=== PATIENT | male | born 1970 | race African-American/Black ===

== ENCOUNTER 2018-07-19 01:17 | Emergency (ER) | payer OTHER, SELFPAY ==
[2018-07-19 01:18] VITALS: BP 176/109; PULSE 68; RESP 20; TEMP 36.8; O2SAT 98; BMI 36.6
[2018-07-19] MEDS: predniSONE 20 MG Tablet 40 MG PO (01:39)
[2018-07-19] MEDS: Ipratropium/Albuterol Sulfate 3 ML AMPUL.NEB INHALATION ×2 (01:52→03:37)
[2018-07-19] MEDS: Albuterol 2.5 MG/3 ML VIAL.NEB. INHALATION (01:52)
[2018-07-19 01:56] VITALS: PULSE 79; RESP 18; O2SAT 95
--- NOTE | 2018-07-19 03:00 | RAD_ITS ---
STUDY: X-RAY CHEST REASON FOR EXAM: Male, 47 years old. SOB TECHNIQUE: Single frontal view of the chest. COMPARISON: None. FINDINGS: The lungs are clear and expanded. There is no demonstrated pleural abnormality. Normal size heart. Normal mediastinum and nader. Normal visualized pulmonary arteries. Normal visualized aortic arch and descending thoracic aorta. Normal visualized thoracic spine. Normal visualized ribs, clavicles, and shoulders. There is no demonstrated abnormality of the visualized soft tissue structures of the upper abdomen. RAD/Chest 1 View (Portable) IMPRESSION: Normal x-ray examination of the chest. Electronically Signed: Frederick Guerin MD at 3:29 EDT Tel , Service support ,
--- NOTE | 2018-07-19 03:00 | EKG12_ITS ---
Test Reason : SOB Blood Pressure : / mmHG Vent. Rate : 074 BPM Atrial Rate : 074 BPM P-R Int : 176 ms QRS Dur : 098 ms QT Int : 402 ms P-R-T Axes : 092 000 048 degrees QTc Int : 446 ms Normal sinus rhythm with sinus arrhythmia Normal ECG Confirmed by BRIANNA ROMAN, SHALINI ([id number]), book or script editor GABRIELLA COOK ([id number]) on 07/23/2018 12:36:26 PM Referred By: LORE Confirmed By:SHALINI REED MD
[2018-07-19] MEDS: 0.9% Normal Saline 1,000 ML 150 ML IV (03:14)
[2018-07-19 03:16] LABS: Absolute Lymphocyte Count 0.88 X10^3/ul (0.83-4.51); Absolute Neutrophil Count 5.3 X10^3/uL (2.0-7.7); Basophil# 0.03 X10^3/uL; Basophil% 0.4 % (0-1); Eosinophil# 0.37 X10^3/uL; Eosinophils% 5.3 % (0-5); Hematocrit 43.3 % (40-54); Hemoglobin 14.5 g/dl (13.0-16.5); Lymphocyte # 0.88 X10^3/ul (4.0); Lymphocyte % 12.7 % (19-41); Mean Corp Hgb Conc 33.5 g/gl (32-36); Mean Corpuscular Hgb 31.5 pg (27.0-32.0); Mean Corpuscular Volume 93.9 fL (80-94); Mean Platelet Vol. 9.6 fl (6.2-12.0); Monocyte# 0.34 X10^3/uL; Monocyte% 4.9 % (0-10); Neutrophil # 5.32 X10^3/uL (2.7-7.7); Neutrophil % 76.6 % (47-70); POSITIVE COUNT NO; POSITIVE DIFFERENTIAL NO; POSITIVE MORPHOLOGY NO; Platelet Count 169 K/mm3 (150-450); RBC Distribution Width CV 12.3 % (11.6-14.6); RBC Distribution Width SD 41.8 fl (35.1-43.9); Red Blood Count 4.61 M/mm3 (4.6-6.2)
[2018-07-19 03:25] LABS: D-Dimer Quantitative (DVT/PE) < 0.27 FEU/ug/m (0.27-0.49)
[2018-07-19 03:31] LABS: Anion Gap 8 (5-15); BUN 15 mg/dL (7-18); BUN/Creat Ratio 15.2 RATIO (10-20); Calcium,Total 9.3 mg/dL (8.5-10.1); Chloride 106 mmol/L (98-107); Creatinine, Serum 0.99 mg/dL (0.70-1.30); EST Glomerular Filtration Rate 87 mL/min (>60); Est Glom Filt Rate - Afr Amer 105 mL/min (>60); Estimated Creatinine Clearance 94.23 ml/min; Glucose 150 mg/dL (74-106); Potassium 3.6 mmol/L (3.5-5.1); Sodium Level 144 mmol/L (136-145)
[2018-07-19 03:44] VITALS: PULSE 79; RESP 18; O2SAT 95
[2018-07-19 03:54] VITALS: BP 165/84; PULSE 79; RESP 20; O2SAT 98
--- NOTE | 2018-07-19 03:58 | ED.DCSUM_ITS ---
- ER Visit Summary Date of Service: 07/19/18 Chief Complaint: [Jayashree of breath] History of Present Illness: The patient is a 47 M [presents the emergency department complaint shortness of breath over last 2 days. Patient thinks that his asthma is flaring up. Patient's been using his albuterol inhaler and not get much relief. Patient denies any fever or cough. He denies any chest pain. He denies recent travel or surgery. Patient does have a history of some anxiety also.] Physical Examination: [HEENT-PERRLA, EOMI. Cranial nerves II through XII grossly intact. TMs clear. Mucous membranes moist. No adenopathy. Cardiovascular-regular rate and rhythm without murmur or ectopy Lungs-good aeration bilaterally. Patient does have some faint expiratory wheezes noted bilaterally. There is no accessory muscle use or retractions. No conversational dyspnea. Abdomen-normoactive bowel sounds, soft, nontender, no rebound or rigidity, no peritoneal signs. Extremities-intact ?4, normal range of motion, normal pulses, atraumatic] Test Results: [EKG obtained on arrival showed a sinus rhythm with a ventricular rate of 74 bpm with no acute ST segment changes. CBC with differential was normal. Chemistries were normal. Troponin was less than 0.015. Chest x-ray was normal. D-dimer was less than 0.27.] Emergency Department Course and Treatment: [Patient was given DuoNeb aerosol as well as prednisone 40 mg p.o. Patient felt improved after treatment.] Treatment Plan: [Patient will be started on prednisone] Disposition: [Discharged home in stable condition] Impression: [Asthma exacerbation] This note was generated with [employer] dictation software. It may contain incorrect words, spelling, and punctuation that were not noted in review of the chart prior to signing ED Disposition - Plan for ED Patient: Chief Complaint: Shortness of Breath Referrals: Samantha Abreu MD [Primary Care Provider] -
--- NOTE | 2018-07-19 03:58 | ED.DEP ---
ED Disposition - Plan for ED Patient: Chief Complaint: Shortness of Breath Instructions: ED Reactive Airway Disease Prescriptions: Prednisone [Deltasone] 20 mg PO BID #10 tab Referrals: Samantha Abreu MD [Primary Care Provider] - 5-7 Days
[2018-07-19 04:06] VITALS: BP 165/64; PULSE 79; RESP 20; O2SAT 98
== END 2018-07-19 04:06 | disposition home or self-care (01) ==
LOC: ED 01:57
PROVIDERS: Emergency Provider Emergency Medicine; Family Provider Internal Medicine; PCP Internal Medicine
DX: J45.901 Unspecified asthma with (acute) exacerbation (principal); Z79.899 Other long term (current) drug therapy
CPT/HCPCS: 71045; 80048; 84484; 85025; 85379; 93005; 94640; 96360; 99285; J7030; A4216

== ENCOUNTER → 2019-03-29 | Outpatient (CLI) | payer OTHER, SELFPAY ==
[2019-01-24 13:35] VITALS: BMI 33.3
--- NOTE | 2019-03-29 17:47 | CT_ITS ---
STUDY: CT CHEST WITH CONTRAST REASON FOR EXAM: Male, 48 years old. Abnormal PFTs, asthma RADIATION DOSAGE (If Supplied By Facility): CTDIvol = ( 12.65 ) mGy, DLP = ( 622.04 ) mGycm TECHNIQUE: Transaxial imaging was performed following intravenous administration of 100 IV Isovue 300. Individualized dose optimization techniques were used for this CT. COMPARISON: None. FINDINGS: The lungs are expanded. Nonspecific punctate peripheral right upper lobe lateral nodule, image 31 series 4. Cardiomegaly.. Normal mediastinum. Normal hilar regions. Normal enhanced pulmonary arteries. Normal aorta arch and descending thoracic aorta. Normal osseous structures. Mildly fatty liver. CT/Chest WITH Contrast IMPRESSION: Nonspecific punctate right upper lobe peripheral nodular density. Mildly fatty liver. Cardiomegaly. Electronically Signed: James Johnson DO at 20:30 EDT Tel [phone], Service support ,
== END | disposition home or self-care (01) ==
PROVIDERS: Family Provider Internal Medicine; PCP Internal Medicine; Referring Provider Nurse Practitioner Acute Care; Visit Provider Nurse Practitioner Acute Care
DX: R94.2 Abnormal results of pulmonary function studies (principal); J45.40 Moderate persistent asthma, uncomplicated
CPT/HCPCS: 71260; Q9967

== ENCOUNTER 2020-03-18 02:33 | Emergency (ER) | payer BC, SELFPAY ==
[2020-01-23 13:28] VITALS: BMI 33.0
[2020-03-18 02:33] VITALS: BP 168/106; PULSE 86; TEMP 36.3; O2SAT 98; BMI 33.1
[2020-03-18] MEDS: Ketorolac 30 MG/ML Syringe IM (02:48)
[2020-03-18] MEDS: Orphenadrine 60 MG/2 ML Ampul IM (02:49)
--- NOTE | 2020-03-18 02:50 | ED.DEP ---
ED Disposition - Plan for ED Patient: Instructions: Muscle Spasm Prescriptions: cycloBENZAPRine HCl [Flexeril] 10 mg PO TID PRN #20 tablet PRN Reason: Muscle Spasm Referrals: Samantha Abreu MD [Primary Care Provider] -
--- NOTE | 2020-03-18 02:53 | ED.VISSUMM ---
- ER Visit Summary Date of Service: 03/18/20 Chief Complaint: Left thigh pain History of Present Illness: The patient is a 49 M presenting with left thigh pain. He states this started approximately one month ago. He states it has been worsening over the last couple of days. He denies injury. He states he started a new asthma medication, Arnuity Ellipta, approximately 1 month ago. He was unsure if this was causing his leg pain so he discontinued the medication 1 week ago. Pain is worsened with movement. He denies fever. Denies chest pain or shortness of breath. Denies PE/DVT risk factors. He has tried ibuprofen at home. Denies other complaints. Physical Examination: Vitals are stable. Patient is afebrile. Alert no acute distress. HEENT exam is unremarkable. Neck is supple. Lungs are clear and equal bilaterally. Heart is regular rate and rhythm. Extremities mild left anterior thigh tenderness. No erythema or warmth. Active full range of motion. Normal distal pulses. Skin is warm and dry. No focal neurologic deficit. Remainder of exam is unremarkable. Emergency Department Course and Treatment: Patient was given Toradol, Norflex IM. Venous Doppler is not available at this time of day and he was given order to have this test performed in the morning. He is given prescription for Flexeril and advised to continue ibuprofen. Swati jacksontica does have musculoskeletal pain listed as adverse effect 3-12% and muscle spasm less than 3%. He has already discontinued this medication. 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 Advised to follow up with primary care physician. Advised return to ED for worsening complaints. Disposition: Discharge home Impression: Left leg pain This note was generated with [employer] dictation software. It may contain incorrect words, spelling, and punctuation that were not noted in review of the chart prior to signing ED Disposition - Plan for ED Patient: Instructions: Muscle Spasm Prescriptions: cycloBENZAPRine HCl [Flexeril] 10 mg PO TID PRN #20 tab PRN Reason: Muscle Spasm Prescription Printed Referrals: Samantha Abreu MD [Primary Care Provider] -
== END 2020-03-18 03:20 | disposition home or self-care (01) ==
LOC: ED 02:59
PROVIDERS: Emergency Provider Emergency Medicine; PCP Internal Medicine
DX: M79.652 Pain in left thigh (principal); J45.909 Unspecified asthma, uncomplicated; I10 Essential (primary) hypertension; Z79.51 Long term (current) use of inhaled steroids; Z79.899 Other long term (current) drug therapy
CPT/HCPCS: 96372; 99282

== ENCOUNTER → 2020-03-18 | Outpatient (CLI) | payer BC, SELFPAY ==
[2020-03-18 02:33] VITALS: BMI 33.1
--- NOTE | 2020-03-18 13:14 | VDLE_ITS ---
Reason For Study: Leg pain RIGHT LEFT CFV is compressible, spontaneous, phasic, GSV is normal. competent and demonstrates normal CFV is compressible, spontaneous, phasic, augmentation. competent, and demonstrates normal Procedure augmentation. Exam performed in department. FV is compressible, spontaneous, phasic, A preliminary report was called and/or faxed competent and demonstrates normal to PCP, Brady. Pt seen in ED 03/18/2020. augmentation. POP V is compressible, spontaneous, phasic, competent and demonstrates normal augmentation. T/P Trunk is compressible. PTV is compressible. LT PerV is compressible. Interpretation Summary Deep veins of the left lower extremity are patent and compressible segmentally. There is no evidence of left lower extremity deep vein thrombosis. Valvular competence appears intact within the proximal deep venous system on the left . The left great saphenous vein appears patent and compressible segmentally. Ordering Physician: Anjelica Johnston Referring Physician: Samantha Abreu M.D. Performed By: Juju Dickinson RVT
== END | disposition home or self-care (01) ==
LOC: CVS 13:13
PROVIDERS: PCP Internal Medicine; Referring Provider Emergency Medicine; Visit Provider Emergency Medicine
DX: M79.605 Pain in left leg (principal)
CPT/HCPCS: 93971

== ENCOUNTER 2021-08-11 12:26 | Emergency (ER) | payer BC, SELFPAY ==
[2021-08-11 12:27] VITALS: BP 146/103; PULSE 92; RESP 18; TEMP 36.8; O2SAT 100; BMI 33.4
--- NOTE | 2021-08-11 12:36 | EDS_ITS ---
HPI History of Present Illness Chief Complaint: Constipation Informant: patient Narrative Narrative: 50-year-old male presents to the emergency department with constipation. Patient states that he sat on the toilet for 8 hours today and pushed. He states he feels that there is something there that is not coming out. He is passing gas. No bleeding. He did not have a bowel movement yesterday but cannot tell me when his last bowel movement was. [facility] Medical History (Updated 08/11/21 @ 13:[address] Austin Titus DO) Abdominal pain Acute gastritis without mention of hemorrhage Allergic rhinitis Asthma Hypertension Obesity Rectal bleeding Urinary calculus Home Medications ibuprofen 800 mg tablet 800 mg PO Q8H PRN tab 01/17/19 [History Last Taken Unknown] albuterol sulfate 90 mcg/actuation aerosol inhaler 2 puff INHALATION Q4H PRN g 01/24/19 [History Last Taken Unknown] lisinopril 2.5 mg tablet 2.5 mg PO DAILY 01/24/19 [History Last Taken Unknown] fluticasone furoate 200 mcg/actuation blister powder for inhalation 1 inh INHALATION QDAY #30 ea 07/10/19 [Rx Last Taken Unknown] Allergy/AdvReac Type Severity Reaction Status Date / Time Penicillins AdvReac Rash Verified 08/11/21 12:28 Family History Mother Diabetes Breast cancer Sister Diabetes Breast cancer Father Cancer gallbladder Surgical History History of colonoscopy Social History Smoking Status: Never smoker alcohol intake: never substance use type: does not use ROS ROS ED Constitutional Constitutional ED: Denies chills, fever(s) or weight loss Eyes Eyes: Denies change in vision or diplopia ENT ENT ED: Denies ear pain, rhinorrhea or sore throat Cardiovascular Cardiovascular: Denies chest pain, orthopnea, palpitations or racing heartbeat Respiratory/Chest Respiratory/Chest: Denies cough, dyspnea or orthopnea Gastrointestinal Gastrointestinal: Reports constipation; Denies abdominal pain, diarrhea, nausea or vomiting Genitourinary Genitourinary ED: Denies dysuria, hematuria or urinary frequency Musculoskeletal Musculoskeletal: Denies arthralgias or myalgias Integumentary Denies abscess or rash Neurologic Neurologic: Denies headache(s) or weakness Psychiatric Psychiatric: Denies anxiety, depression, suicidal ideation or suicidal thoughts Endocrine Endocrinology: Denies polydipsia, polyphagia or polyuria Allergic/Immunologic Allergic/Immunologic ED: Denies mouth swelling, tongue swelling or urticaria EXAM Physical Exam Const Vital Signs: 08/11/21 12:27 Temperature 98.3 F Temperature Source Temporal Pulse Rate 92 Respiratory Rate 18 Blood Pressure 146/103 H Blood Pressure Mean 117 Pulse Ox 100 Oxygen Delivery Method Room Air Positive well nourished and well developed General Appearance ED: well developed HEENT Reports normocephalic, head/scalp atraumatic, TM's clear and moist mucous membranes Negative for trauma Tympanic Membrane ED: Yes TM's clear Eyes PERRL and EOMs intact bilaterally Neck no lymphadenopathy, supple and no JVD Resp normal respiratory effort and clear to auscultation bilaterally Cardio regular rate, regular rhythm and no murmurs GI normal to inspection, nondistended, normoactive bowel sounds and non-tender Palpation: soft Narrative: Rectal examination shows a few inflamed hemorrhoids. There is no rectal prolapse. The stool is very soft Back/Spine no CVA tenderness and normal ROM Extremity normal to inspection General Extremety ED: Negative for edema General Extremity: Negative for edema Neuro oriented x3 and CN's II-XII intact bilaterally Sensorium / Orientation: alert Motor Exam: strength 5/5 throughout Psych mental status grossly normal Mood & Affect: Negative for depressed or tearful Skin no rashes or lesions noted and no wounds MDM MDM MDM Narrative Medical decision making narrative: My interpretation of the x-ray is fecal impaction of the rectum. Stool was soft and he received an enema and was able to evacuate what he needed to. Patient encouraged to start a daily stool softener so this does not recur Radiography Diagnostic Testing: Clinical Impression(s) from Imaging Studies KUB X-Ray 08/11/21 12:44 IMPRESSION: Mild colonic fecal retention. Nonobstructive bowel gas pattern. Electronically Signed: Mirza Rich MD ([place]) at 13:01 EST , Service support , Discharge Plan Triage Chief Complaint: Constipation ED Provider: Austin Titus Dx/Rx/DC Orders Clinical Impression: Fecal impaction in rectum Instructions: ED Fecal Impaction, Treated Prescriptions: No Action albuterol sulfate [Ventolin HFA] 90 mcg/actuation HFA aerosol inhaler 2 puff INHALATION Q4H PRN (Reason: Sob &/Or Wheezing) RF: 0 lisinopril 2.5 mg tablet 2.5 mg PO DAILY RF: 0 ibuprofen 800 mg tablet 800 mg PO Q8H PRN (Reason: pain) RF: 0 Arnuity Ellipta 200 mcg/actuation blister with device 1 inh INHALATION QDAY Qty: 30 RF: 6 Primary Care Provider: Samantha Abreu Referrals: Samantha Abreu MD [Primary Care Provider] - [facility] appointment Activity Restrictions/Additional Instructions: I would suggest you start a daily stool softener such as Colace 100 mg once a day Disposition Disposition: Home, Self Care
--- NOTE | 2021-08-11 12:44 | RAD_ITS ---
STUDY: X-RAY - ABDOMEN/PELVIS REASON FOR EXAM: Male, 50 years old. CONSTIPATION TODAY, FEELS THOUGH NEEDS TO HAVE BOWEL MOVEMENT, AND HAS PRESSURE, BUT UNABLE TO GO TECHNIQUE: AP supine and upright views of the abdomen and pelvis. COMPARISON: None. FINDINGS: Excluded lung bases. Mild fecal residue of the right colon and rectal vault. No dilated loops of small bowel. There is no demonstrated free abdominal air. The visualized liver, spleen and kidneys are grossly normal in size and morphology. Normal soft tissue structures. Normal visualized osseous structures. RAD/Abdomen Single View IMPRESSION: Mild colonic fecal retention. Nonobstructive bowel gas pattern. Electronically Signed: Mirza Rich MD ([place]) at 13:01 EST , Service support ,
== END 2021-08-11 14:21 | disposition home or self-care (01) ==
PROVIDERS: Emergency Provider Emergency Medicine; PCP Internal Medicine
DX: K56.41 Fecal impaction (principal); J45.909 Unspecified asthma, uncomplicated; I10 Essential (primary) hypertension; Z79.51 Long term (current) use of inhaled steroids; Z79.899 Other long term (current) drug therapy
CPT/HCPCS: 74018; 99284

== ENCOUNTER → 2023-02-20 | Outpatient (CLI) | payer BC, SELFPAY ==
--- NOTE | 2023-02-20 15:35 | ST.MBS ---
Modified Barium Swallow - Patient Information Study Date: 02/20/23 Study Time: 13:00 Direct Billable Minutes: 112 Total Minutes procedure & reportin Diagnosis: Pharyngoesophageal dysphagia (R13.14) Referring Physician: Samantha Abreu Reason for Referral: Objectively assess swallow function, assess risk for aspiration, and determine recommendations for least restrictive diet textures and compensatory strategies to improve safety of swallow. Medical History: The patient is a 52-year-old male with PMH including abdominal pain, asthma, HTN, and gastritis (SEE EMR for full PMH). He was referred for MBSS due to pharyngoesophageal dysphagia. Per patient, he began having swallowing difficulty 1-3 months ago characterized by sensation of food feeling hung up in his throat, and then passing. He reported no need for liquid wash to clear the sensation of retention. He reports this happens with food at every meal and occasionally drinks. He denies history of choking or coughing with oral intake. Of note, he eats little meat due to this issue. He consumes soft solid foods. He reports losing ~11 lbs since October. Current Diet Ordered: Soft solids / Thin liquids Dentition: WNL Respiratory Status: Oxygenating on Room Air - Penetration-Aspiration Scale Penetration-Aspiration Scale: OBJECTIVE ASSESSMENT OF SWALLOW FUNCTION (QUANTITATIVE ? PER TRIAL): PENETRATION / ASPIRATION SCALE (GUAMAN): 1 = does not enter airway 2 = enters airway/above vocal folds/ejected 3 = enters airway/above vocal folds/not ejected 4 = enters airway/contacts vocal folds/ejected 5 = enters airway/contacts vocal folds/not ejected 6 = enters airway/below vocal folds/ejected 7 = enters airway/below vocal folds/not ejected despite effort 8 = enters airway/below vocal folds/no effort VIDEOFLOROSCOPIC SCALE SCORE (GUAMAN): Grade I = aspiration of material that has penetrated into the laryngeal vestibule, intact cough reflex Grade II = aspiration < 10 % of the bolus, intact cough reflex Grade III = aspiration of < 10 % of the bolus, reduced cough reflex or aspiration of > 10 % of the bolus, intact cough reflex Grade IV = aspiration of > 10 % of the bolus, reduced cough reflex - Penetration-Aspiration Scale Score Thin Liquid via teaspoon Result: 1= does not enter airway Thin Liquid via teaspoon Trial 2 Result: 1= does not enter airway Thin Liquid via small single sip from cup Result: 1= does not enter airway Thin Liquid via sequential sips from cup Result: 2= enter airway/above vocal folds/ejected Raoul Thick Liquid via small single sip from cup Result: 1= does not enter airway - 4 swallows to clear from oral cavity Pudding via teaspoon esophageal screen Result: 1= does not enter airway - after 5 swallows ~1/2 of the bolus remained in the oral cavity 1/2 Cookie Result: 1= does not enter airway - after 4 swallows ~1/2 of the bolus remained in the oral cavity Pudding via teaspoon Result: 1= does not enter airway Comment: DYE MACHINE TENDER showed the patient he only has trace pharyngeal residues and encouraged the patient to swallow pudding bite whole. Patient continued with use of piecemeal deglutition and required 4 swallows to clear most of pudding via tsp from oral cavity. - Oral Phase Labial Seal: No Labial Escape Tongue Control During Bolus Hold: Cohesive bolus between tongue to palatal seal Bolus Preparation/Mastication: Slow prolonged chewing/mashing with complete recollection Bolus Transport/Lingual Motion: Brisk tongue motion Oral Residue: Majority of bolus remaining - piecemeal deglutition of nectar, pudding, and cookie - Pharyngeal Phase Initiation of Pharyngeal Swallow: Bolus head in valleculae Soft Palate Elevation: No bolus between soft palate and pharyngeal wall Laryngeal Elevation: Comp. Superior move thyroid cart w/comp. apprx arytenoid cart-epig pet Anterior Hyoid Excursion: Complete anterior movement Epiglottic Movement: Complete inversion Laryngeal Vestibule Closure at Height of Swallow: Incomplete; narrow column of air/contrast in laryngeal vestibule - trace laryngeal penetration 1X w/ sequential thin Pharyngeal Stripping Wave: Present - complete Pharyngoesophageal Segment Opening: Parital distension and partial duration; parital obstruction of flow Tongue Base Retraction: Trace column of contrast between tongue base & post. pharyngeal wall Pharyngeal Residue: Trace residue within or on pharyngeal structures - Esophageal Phase Esophageal Clearance: Esophageal retention - Diagnosis/Impression Diagnosis: Oropharyngeal swallow function grossly WNL Impression: Overall, the patient demonstrated oropharyngeal swallow function grossly WNL. Of note, he completed nectar, pudding, and cookie trials with great hesitation due to sensation of food/drink caught in his throat despite DYE MACHINE TENDER ensuring the patient of good pharyngeal clearance of all consistencies assessed. He utilized piecemeal deglutition and multiple swallows to somewhat clear nectar, pudding, and cookie trials from oral cavity. He did end up spitting out ~1/2 cookie trial and ~1/2 tsp of pudding. He said he did not feel he had difficulty physically sending the food back to his throat with his tongue, but rather he felt hesitant. Osteophytes present at the level of C4 and C5 (confirmed by radiologist, Dr. Linares); however, bolus clearance did not appear to be impacted by presence of osteophytes. Mild retention of pudding in mid esophagus. Slowed, but complete emptying of liquids through the lower esophageal sphincter. - Recommendations Diet: Regular Textures, Thin Liquids Compensatory Strategies: Small Bites, Small Sips, Slow Rate, Sitting upright, Remain sitting upright for 30 minutes after PO intake Recommend Repeat Modified Barium Swallow: No Need for Skilled Speech Therapy Services: No Recommended Referrals: Dietitian Consult - Weight loss, hesitant to swallow foods including thicker viscosities such as purees Education Completed: 1. Described result of evaluation. - Status Active ST Patient: Active - Contact Information [facility] Speech Therapy:: Yolanda Roberson M.A. [facility]-DYE MACHINE TENDER Speech-Language Pathologist [facility] [id number] [place] [address] [email or web address] [phone] 02/20/23 15:36
== END | disposition home or self-care (01) ==
LOC: RAD 12:52
PROVIDERS: PCP Internal Medicine; Referring Provider Internal Medicine; Visit Provider Internal Medicine
DX: R13.14 Dysphagia, pharyngoesophageal phase (principal)
CPT/HCPCS: 74230; 92611